=== PATIENT | female | born 1980 | race Caucasian/White ===

== ENCOUNTER 2018-06-06 20:10 | Emergency (ER) | payer SELFPAY ==
[2018-06-06 20:16] VITALS: BP 142/96; PULSE 134; RESP 18; O2SAT 96
--- NOTE | 2018-06-06 20:51 | DI.RAD.S_ITS ---
PROCEDURE: XR FOOT RT 2V INDICATIONS: glf TECHNIQUE: 3 views of the foot were acquired. COMPARISON: None. FINDINGS: Bones: No fractures or dislocations. No suspicious bony lesions. Soft tissues: No tibiotalar joint effusion. Achilles tendon appears normal. IMPRESSION: No acute fracture. No osseous lesion. If clinical suspicion and/or symptoms persist, further assessment with repeat plainfilms, or advanced imaging (e.g., CT, MRI, or bone scan) may be helpful for further assessment. Dictated by: Amari Barfield M.D. on 06/06/2018 at 21:11 Approved by: Amari Barfield M.D. on 06/06/2018 at 21:12
--- NOTE | 2018-06-06 21:08 | ED.LOWEXIN ---
HPI - Extremity Injury (Lower) <ROSA MARIA Cody - Last Filed: 06/06/18 22:21> General Chief Complaint: Extremity Injury, Lower Stated Complaint: RIGHT FOOT INJURY Time Seen by Provider: 06/06/18 21:08 Source: patient Mode of arrival: ambulatory History of Present Illness HPI Narrative: 38-year-old female here for complaint of pain to her right foot since earlier today. She states that she was walking downhill when foot up when the pain started. She denies any direct trauma to the foot or ankle. Increased pain with ambulation. She denies any other injuries or concerns at this point. MD complaint: ankle injury Review of Systems <ROSA MARIA Cody - Last Filed: 06/06/18 22:21> Constitutional Denies chills, Denies fever(s), Denies lethargy and Denies weakness Eyes Denies change in vision, Denies eye discharge, Denies irritation and Denies loss of vision ENT Ears, Nose, Mouth, and Throat: Denies change in voice, Denies neck pain and Denies sore throat Cardiovascular Denies chest pain, Denies irregular heart rhythm, Denies lightheadedness, Denies palpitations, Denies dyspnea, Denies dyspnea on exertion and Denies orthopnea Respiratory Denies cough, Denies dyspnea, Denies dyspnea on exertion and Denies wheezing Gastrointestinal Gastrointestinal: Denies abdominal pain, Denies change in bowel habits, Denies diarrhea, Denies nausea and Denies vomiting Genitourinary Denies hematuria, Denies flank pain, Denies urinary incontinence and Denies urinary urgency Musculoskeletal Denies neck pain Comments: Right ankle pain Neurologic Denies confusion, Denies loss of vision and Denies weakness Psychiatric Denies anxiety, Denies confusion, Denies depression, Denies homicidal ideation and Denies suicidal ideation Endocrine Denies palpitations Hematologic/Lymphatic Denies easy bruising Allergic/Immunologic Denies wheezing Exam <ROSA MARIA Cody - Last Filed: 06/06/18 22:21> Initial Vital Signs Initial Vital Signs: Vital Signs Pulse Rate 134 H 06/06/18 20:16 Respiratory Rate 18 06/06/18 20:16 Blood Pressure 142/96 H 06/06/18 20:16 Pulse Oximetry 96 06/06/18 20:16 Const General: cooperative and well developed Nutritional Appearance: well nourished Orientation: alert, awake, oriented x3 and not confused [facility] Mouth: oral mucosae normal and moist mucous membranes Eyes Conjunctivae: conjunctivae normal Sclera: sclerae normal Pupils: PERRL EOM: EOM intact bilaterally Resp Effort & Inspection: normal respiratory effort, able to speak in complete sentences, no respiratory distress and no use of accessory muscles Auscultation: clear to auscultation bilaterally, no rales, no rhonchi and no wheezes Cardio Rate: regular rate Rhythm: regular rhythm Heart Sounds: no click, no gallops, no murmurs and no rubs Pulses: normal peripheral pulses Skin General: no rashes or lesions noted, No jaundice and No petechiae Neuro General: alert, oriented x3, gait normal and no focal motor deficits Speech: speech normal Extrem General: full ROM, no clubbing, cyanosis or edema, no pedal edema and no calf tenderness Other: Right foot and right ankle with no signs of trauma. No ecchymosis. No swelling. Distal sensation is intact. Distal cap refill less than 2 sec. Slight amount of pain on palpation to the lateral aspect of the right ankle/foot <Mariposa Cortes DO - Last Filed: 06/07/18 02:37> Initial Vital Signs Initial Vital Signs: Vital Signs Pulse Rate 134 H 06/06/18 20:16 Respiratory Rate 18 06/06/18 20:16 Blood Pressure 142/96 H 06/06/18 20:16 Pulse Oximetry 96 06/06/18 20:16 Course <ROSA MARIA Cody - Last Filed: 06/06/18 22:21> Orders Ordered: ED Orders 06/06/18 20:51 XR foot RT 2V Stat Discontinued Medications Ibuprofen (Advil) 400 mg PO NOW ONE Stop: 06/06/18 21:17 Vital Signs - 8 hr 06/06/18 20:16 06/06/18 21:26 Temperature 97.5 F L Pulse Rate 134 H 92 H Respiratory Rate 18 18 Blood Pressure 142/96 H Blood Pressure [Left Arm] 131/82 H Pulse Oximetry 96 100 <Mariposa Cortes DO - Last Filed: 06/07/18 02:37> Orders Ordered: ED Orders 06/06/18 20:51 XR foot RT 2V Stat Discontinued Medications Ibuprofen (Advil) 400 mg PO NOW ONE Stop: 06/06/18 21:17 Vital Signs - 8 hr 06/06/18 20:16 06/06/18 21:26 Temperature 97.5 F L Pulse Rate 134 H 92 H Respiratory Rate 18 18 Blood Pressure 142/96 H Blood Pressure [Left Arm] 131/82 H Pulse Oximetry 96 100 [facility] - Extremity Injury (Lower) <ROSA MARIA Cody - Last Filed: 06/06/18 22:21> Imaging Data Right foot x-ray : Radiologist's impression: Patient: TOMAS BANEGAS MR#: [id number] : 1980 Acct:[id number] Age/Sex: 38 / F Date of Service: 06/06/18 Loc: ED Accession Number: [id number] Procedure: XR foot RT 2V Ordering Provider: Mariposa Cortes D.O. PROCEDURE: XR FOOT RT 2V INDICATIONS: glf TECHNIQUE: 3 views of the foot were acquired. COMPARISON: None. FINDINGS: Bones: No fractures or dislocations. No suspicious bony lesions. Soft tissues: No tibiotalar joint effusion. Achilles tendon appears normal. IMPRESSION: No acute fracture. No osseous lesion. If clinical suspicion and/or symptoms persist, further assessment with repeat plainfilms, or advanced imaging (e.g., CT, MRI, or bone scan) may be helpful for further assessment. Dictated by: Amari Barfield M.D. on 06/06/2018 at 21:11 Approved by: Amari Barfield M.D. on 06/06/2018 at 21:12 [facility] Narrative Medical decision making narrative: X-ray of the right foot was obtained and was negative for any acute findings. Signs and symptoms presents as sprain of the right foot. She is placed in Tano wrap for comfort and support. [id number] Tylenol or Motrin as needed for any discomfort. Ice and elevation help with eye swelling. Follow up with primary care provider later this week. For any worsening symptoms return to the emergency room. Discharge Plan Departure Patient Disposition: Home, Self-Care Clinical Impression: Sprain of foot, right Discharge Date/Time: 06/06/18 21:44 Interventions: ED Discharge Assessment Last Done: 06/06/18 21:42 Instructions: DI for Foot Sprain Activity Restrictions/Additional Instructions: X-ray of the right foot was obtained and was negative for any acute findings. Signs and symptoms presents as sprain of the right foot. You have been placed in a Tano wrap for comfort and support use as directed. [id number] Tylenol or Motrin as needed for any discomfort. Ice and elevation help with eye swelling. Follow up with primary care provider later this week. For any worsening symptoms return to the emergency room. Referrals: [facility] [Provider Group] <Mariposa Cortes DO - Last Filed: 06/07/18 02:37> Cosign ED Attending Spencer Attestation: I was immediately available in the department for consultation. Documentation has been reviewed. I agree with assessment and plan.
[2018-06-06 21:26] VITALS: BP 131/82; PULSE 92; RESP 18; TEMP 36.4; O2SAT 100
--- NOTE | 2018-06-06 21:27 | ED_ITS ---
HPI - Extremity Injury (Lower) <ROSA MARIA Cody - Last Filed: 06/06/18 22:21> General Chief Complaint: Extremity Injury, Lower Stated Complaint: RIGHT FOOT INJURY Time Seen by Provider: 06/06/18 21:08 Source: patient Mode of arrival: ambulatory History of Present Illness HPI Narrative: 38-year-old female here for complaint of pain to her right foot since earlier today. She states that she was walking downhill when foot up when the pain started. She denies any direct trauma to the foot or ankle. Increased pain with ambulation. She denies any other injuries or concerns at this point. MD complaint: ankle injury Review of Systems <ROSA MARIA Cody - Last Filed: 06/06/18 22:21> Constitutional Denies chills, Denies fever(s), Denies lethargy and Denies weakness Eyes Denies change in vision, Denies eye discharge, Denies irritation and Denies loss of vision ENT Ears, Nose, Mouth, and Throat: Denies change in voice, Denies neck pain and Denies sore throat Cardiovascular Denies chest pain, Denies irregular heart rhythm, Denies lightheadedness, Denies palpitations, Denies dyspnea, Denies dyspnea on exertion and Denies orthopnea Respiratory Denies cough, Denies dyspnea, Denies dyspnea on exertion and Denies wheezing Gastrointestinal Gastrointestinal: Denies abdominal pain, Denies change in bowel habits, Denies diarrhea, Denies nausea and Denies vomiting Genitourinary Denies hematuria, Denies flank pain, Denies urinary incontinence and Denies urinary urgency Musculoskeletal Denies neck pain Comments: Right ankle pain Neurologic Denies confusion, Denies loss of vision and Denies weakness Psychiatric Denies anxiety, Denies confusion, Denies depression, Denies homicidal ideation and Denies suicidal ideation Endocrine Denies palpitations Hematologic/Lymphatic Denies easy bruising Allergic/Immunologic Denies wheezing Exam <ROSA MARIA Cody - Last Filed: 06/06/18 22:21> Initial Vital Signs Initial Vital Signs: Vital Signs Pulse Rate 134 H 06/06/18 20:16 Respiratory Rate 18 06/06/18 20:16 Blood Pressure 142/96 H 06/06/18 20:16 Pulse Oximetry 96 06/06/18 20:16 Const General: cooperative and well developed Nutritional Appearance: well nourished Orientation: alert, awake, oriented x3 and not confused [facility] Mouth: oral mucosae normal and moist mucous membranes Eyes Conjunctivae: conjunctivae normal Sclera: sclerae normal Pupils: PERRL EOM: EOM intact bilaterally Resp Effort & Inspection: normal respiratory effort, able to speak in complete sentences, no respiratory distress and no use of accessory muscles Auscultation: clear to auscultation bilaterally, no rales, no rhonchi and no wheezes Cardio Rate: regular rate Rhythm: regular rhythm Heart Sounds: no click, no gallops, no murmurs and no rubs Pulses: normal peripheral pulses Skin General: no rashes or lesions noted, No jaundice and No petechiae Neuro General: alert, oriented x3, gait normal and no focal motor deficits Speech: speech normal Extrem General: full ROM, no clubbing, cyanosis or edema, no pedal edema and no calf tenderness Other: Right foot and right ankle with no signs of trauma. No ecchymosis. No swelling. Distal sensation is intact. Distal cap refill less than 2 sec. Slight amount of pain on palpation to the lateral aspect of the right ankle/foot <Mariposa Cortes DO - Last Filed: 06/07/18 02:37> Initial Vital Signs Initial Vital Signs: Vital Signs Pulse Rate 134 H 06/06/18 20:16 Respiratory Rate 18 06/06/18 20:16 Blood Pressure 142/96 H 06/06/18 20:16 Pulse Oximetry 96 06/06/18 20:16 Course <ROSA MARIA Cody - Last Filed: 06/06/18 22:21> Orders Ordered: ED Orders 06/06/18 20:51 XR foot RT 2V Stat Discontinued Medications Ibuprofen (Advil) 400 mg PO NOW ONE Stop: 06/06/18 21:17 Vital Signs - 8 hr 06/06/18 20:16 06/06/18 21:26 Temperature 97.5 F L Pulse Rate 134 H 92 H Respiratory Rate 18 18 Blood Pressure 142/96 H Blood Pressure [Left Arm] 131/82 H Pulse Oximetry 96 100 <Mariposa Cortes DO - Last Filed: 06/07/18 02:37> Orders Ordered: ED Orders 06/06/18 20:51 XR foot RT 2V Stat Discontinued Medications Ibuprofen (Advil) 400 mg PO NOW ONE Stop: 06/06/18 21:17 Vital Signs - 8 hr 06/06/18 20:16 06/06/18 21:26 Temperature 97.5 F L Pulse Rate 134 H 92 H Respiratory Rate 18 18 Blood Pressure 142/96 H Blood Pressure [Left Arm] 131/82 H Pulse Oximetry 96 100 [facility] - Extremity Injury (Lower) <ROSA MARIA Cody - Last Filed: 06/06/18 22:21> Imaging Data Right foot x-ray : Radiologist's impression: Patient: TOMAS BANEGAS MR#: [id number] : 1980 Acct:[id number] Age/Sex: 38 / F Date of Service: 06/06/18 Loc: ED Accession Number: [id number] Procedure: XR foot RT 2V Ordering Provider: Mariposa Cortes D.O. PROCEDURE: XR FOOT RT 2V INDICATIONS: glf TECHNIQUE: 3 views of the foot were acquired. COMPARISON: None. FINDINGS: Bones: No fractures or dislocations. No suspicious bony lesions. Soft tissues: No tibiotalar joint effusion. Achilles tendon appears normal. IMPRESSION: No acute fracture. No osseous lesion. If clinical suspicion and/or symptoms persist, further assessment with repeat plainfilms, or advanced imaging (e.g., CT, MRI, or bone scan) may be helpful for further assessment. Dictated by: Amari Barfield M.D. on 06/06/2018 at 21:11 Approved by: Amari Barfield M.D. on 06/06/2018 at 21:12 [facility] Narrative Medical decision making narrative: X-ray of the right foot was obtained and was negative for any acute findings. Signs and symptoms presents as sprain of the right foot. She is placed in Tano wrap for comfort and support. Over-the- counter Tylenol or Motrin as needed for any discomfort. Ice and elevation help with eye swelling. Follow up with primary care provider later this week. For any worsening symptoms return to the emergency room. Discharge Plan Departure Patient Disposition: Home, Self-Care Clinical Impression: Sprain of foot, right Discharge Date/Time: 06/06/18 21:44 Interventions: ED Discharge Assessment Last Done: 06/06/18 21:42 Instructions: DI for Foot Sprain Activity Restrictions/Additional Instructions: X-ray of the right foot was obtained and was negative for any acute findings. Signs and symptoms presents as sprain of the right foot. You have been placed in a Tano wrap for comfort and support use as directed. [id number] Tylenol or Motrin as needed for any discomfort. Ice and elevation help with eye swelling. Follow up with primary care provider later this week. For any worsening symptoms return to the emergency room. Referrals: [facility] [Provider Group] <Mariposa Cortes DO - Last Filed: 06/07/18 02:37> Cosign ED Attending Spencer Attestation: I was immediately available in the department for consultation. Documentation has been reviewed. I agree with assessment and plan.
== END 2018-06-06 21:44 | disposition home or self-care (01) ==
PROVIDERS: Emergency Provider Nurse Practitioner Family
DX: S93.601A Unspecified sprain of right foot, initial encounter (principal); W01.0XXA Fall on same level from slipping, tripping and stumbling without subsequent striking against object, initial encounter
CPT/HCPCS: 73620; 99282; 99283